=== PATIENT | female | born 1980 | race Caucasian/White ===

== ENCOUNTER 2017-07-19 08:39 | Emergency (ER) | payer BC ==
[~2017-07-19] VITALS: Ht 167.6 cm; Wt 102.1 kg
[~2017-07-19 08:39] MED LIST: FACE; NOHOMEMEDS; TYLENOL REGULA325 MG PO; VANCOMYCIN1 GM/150 M IV
[2017-07-19 08:59] VITALS: BP 111/73
[2017-07-19] MEDS ORDERED: KEFLEX500 MG PO (10:43)
== END 2017-07-19 10:57 | disposition home or self-care (01) ==
LOC: EME 08:39
DX: L01.00 Impetigo, unspecified (principal); Z86.14 Personal history of Methicillin resistant Staphylococcus aureus infection
CPT/HCPCS: 99281; 99283